=== PATIENT | female | born 1960 | race Caucasian/White ===

== ENCOUNTER → 2016-08-28 | Outpatient (CLI) | payer OTHER, MEDICAID, MEDICARE ==
[~2016-08-28] MED LIST: ALBUTEROL SULF 2.5 MG/0.5ML(0.5%) NEB SOLN ONE; ASPI-231 PO; CARI350T21 PO; CITA-77 PO; ENALAPRIL PO; FLUT250M2 INH; HYDR500T13 PO; LORA-655 PO; MONT10TA23 PO; MONT10TA34 PO; MULT-279 PO; PREG50CA PO; TIOTCAP IN; [UNRECOGNIZED DRUG - CODE] PO
== END | disposition home or self-care (01) ==
LOC: RT 08:35
PROVIDERS: ATTEND Internal Medicine Pulmonary Disease
DX: J44.9 Chronic obstructive pulmonary disease, unspecified (principal); R94.2 Abnormal results of pulmonary function studies
CPT/HCPCS: 94060; 94640

== ENCOUNTER 2016-08-30 11:27 | Inpatient (IN) | payer OTHER, MEDICAID ==
[~2016-08-30] VITALS: Ht 165.1 cm; Wt 126.6 kg
[~2016-08-30 11:27] MED LIST changes: -ALBUTEROL SULF 2.5 MG/0.5ML(0.5%) NEB SOLN ONE
[2016-08-30] MEDS ORDERED: ALBUTEROL SULF 2.5 MG/0.5ML(0.5%) NEB SOLN HHN ONE (12:15)
[2016-08-30] MEDS ORDERED: methylPREDNISolone SOD SUCC 125 MG/2 ML VL IV ONE (12:15)
[2016-08-30] MEDS ORDERED: IPRATROPIUM BROM 0.5 MG/2.5ML INH SOL HHN ONE (12:15)
[2016-08-30] MEDS ORDERED: ALBUTEROL SULF 2.5 MG/0.5ML(0.5%) NEB SOLN NEB ONE (12:30)
[2016-08-30 12:37] LABS: Basophils # (auto) 0 uL; Basophils % (auto) 0.5 % (0.0-2.0); Eosinophils # (auto) 0.3 uL; Eosinophils % (auto) 3.8 % (0.0-7.0); Hematocrit 40.8 % (36.0-46.0); Hemoglobin 13.5 g/dL (12.2-16.2); Lymphocytes # (auto) 1.6 uL; Lymphocytes % (auto) 20.7 % (10.0-50.0); Mean Corpuscular Hgb Conc. 33.1 g/dL (32.0-36.0); Mean Corpuscular Volume 93.4 fL (80.0-100.0); Mean Platelet Volume 9.7 fL (7.4-10.4); Monocytes # (auto) 0.6 uL; Monocytes % (auto) 7.4 % (0.0-12.0); Neutrophils # (auto) 5.2 uL; Neutrophils % (auto) 67.6 % (37.0-80.0); Platelet Count (auto) 231 10^3/uL (140-450); Red Cell Distribution Width 15.4 % (11.6-16.0); White Blood Cell 7.7 10^3/uL (4.4-10.8)
[2016-08-30 12:55] LABS: Urine Bilirubin Negative (Negative); Urine Blood Negative /uL (Negative); Urine Color Yellow (Yellow); Urine Glucose Normal (Normal); Urine Ketone Negative (Negative); Urine Nitrite Negative (Negative); Urine RBC 1 /hpf (0 - 4); Urine Squamous Epithelial Cell FEW /hpf (<5); Urine Urobilinogen Normal (Negative); Urine pH 6.5 (5.0-8.0)
[2016-08-30 12:58] LABS: Lactic Acid w/Reflex 2.2 mmol/L (0.4-2.0)
[2016-08-30 13:00] LABS: Albumin 3.4 g/dL (3.4-5.0); Alkaline Phosphatase 93 U/L (45-117); Anion Gap 9 (5-15); Aspartate Aminotransferase 14 U/L (15-37); BUN/Creatinine Ratio 11.7; Bilirubin, Total 0.2 mg/dL (0.2-1.0); Blood Urea Nitrogen 12 mg/dL (7-18); Calcium 8.8 mg/dL (8.5-10.1); Carbon Dioxide 33 mmol/L (21-32); Chloride 96 mmol/L (98-107); GFR African American 71 mL/min; GFR Non-African American 58 mL/min; Glucose 109 mg/dL (74-106); Magnesium 2.3 mg/dL (1.6-2.6); Potassium 3.7 mmol/L (3.5-5.1); Sodium 138 mmol/L (136-145); Total Protein 7.4 g/dL (6.4-8.2)
[2016-08-30 13:28] LABS: REFLEX LACTIC ACID YES OR NO YES
[2016-08-30 13:29] LABS: B-Type Natriuretic Peptide 21.13 pg/mL (0-100)
[2016-08-30] MEDS ORDERED: PROCHLORPERAZINE EDISYLATE 5 MG/ML 2ML VIAL IV PRN (13:30)
[2016-08-30] MEDS ORDERED: cefTRIAXone 1GM/50ML D5W 50 ML IV ONE (13:30)
[2016-08-30] MEDS ORDERED: LACTULOSE 20Gm/30ML SOLN PO PRN (13:30)
[2016-08-30] MEDS ORDERED: MORPHINE SULF INJ 2 MG/ML SYRINGE 1ML IV PRN (13:30)
[2016-08-30] MEDS ORDERED: LORazepam 0.5 MG TAB PO PRN (13:30)
[2016-08-30] MEDS ORDERED: ACETAMINOPHEN 500 MG TAB PO PRN (13:30)
[2016-08-30] MEDS ORDERED: NITROGLYCERIN 0.4 MG SL TAB SL PRN (13:30)
[2016-08-30] MEDS ORDERED: CALCIUM CARB 500 MG CHEW TAB PO PRN (13:30)
[2016-08-30 13:38] LABS: Temperature: 24.5 C (20.0-25.0)
[2016-08-30] MEDS ORDERED: ENALAPRIL MALEATE 10 MG TAB PO ONE ×2 (13:45→14:00)
[2016-08-30] MEDS ORDERED: CITALOPRAM HYDROBR 20 MG TAB PO ONE (14:00)
[2016-08-30] MEDS ORDERED: MONTELUKAST SODIUM 10 MG TAB PO ONE (14:00)
[2016-08-30] MEDS ORDERED: MULTIPLE VITAMINS W/ MINERALS TAB PO ONE (14:00)
[2016-08-30] MEDS ORDERED: ENOXAPARIN SOD 40 MG/0.4 ML SYRINGE SC ONE (14:00)
[2016-08-30] MEDS ORDERED: ASPirin-EC 81 mg tab PO ONE (14:00)
[2016-08-30] MEDS ORDERED: PANTOPRAZOLE 40 MG TAB PO ONE (14:00)
[2016-08-30] MEDS ORDERED: methylPREDNISolone SOD SUCC 40 MG/ML VL IV ONE (14:00)
[2016-08-30] MEDS: SODIUM CHLORIDE 0.9% 1,000 ML IV SCH (14:14)
[2016-08-30] MEDS: HYDROcodone-ACET 5/325MG TAB PO PRN ×2 (14:22→20:31)
[2016-08-30] MEDS: DOXYCYCLINE HYC 100MG/250ML 250 ML IV SCH (14:22)
[2016-08-30 15:31] VITALS: BP 132/86
[2016-08-30] MEDS: ALBUTEROL SULF 2.5 MG/0.5ML(0.5%) NEB SOLN NEB PRN (15:40)
[2016-08-30 17:00] VITALS: BP 132/86
[2016-08-30] MEDS ORDERED: ALBUTEROL SULF 2.5 MG/0.5ML(0.5%) NEB SOLN NEB SCH (18:00)
[2016-08-30] MEDS: methylPREDNISolone SOD SUCC 40 MG/ML VL IV SCH ×2 (18:41→23:47)
[2016-08-30] MEDS: BUDESONIDE (INHALATION) 0.5 MG/2 ML NEB NEB SCH (19:24)
[2016-08-30] MEDS: ALBUTEROL SULF 2.5 MG/0.5ML(0.5%) NEB SOLN NEB SCH (19:25)
[2016-08-30] MEDS: IPRATROPIUM BROM 0.5 MG/2.5ML INH SOL NEB SCH (19:25)
[2016-08-30 20:00] VITALS: BP 129/63
[2016-08-30] MEDS: TEMAZEPAM 15 MG CAP PO PRN (21:50)
[2016-08-30] MEDS: PREGABALIN 25 MG CAP PO SCH (21:51)
[2016-08-30 22:00] VITALS: BP_SYST 129; BP_SYST 149; BP_DIAS 63; BP_DIAS 79
[2016-08-30] MEDS ORDERED: PATIENTS OWN MEDICATION (Pregabalin (Lyrica) 50 MG) PO SCH ×2 (22:00)
[2016-08-30] MEDS ORDERED: PATIENTS OWN MEDICATION (Fluticasone-Salmeterol (Advair Diskus 250/50) 1 PUFF) INH SCH ×2 (22:00)
[2016-08-30] MEDS ORDERED: IPRATROPIUM BROM 0.5 MG/2.5ML INH SOL ONE (23:59)
[2016-08-31] VITALS (7 sets, daily range): BP systolic 123–149; BP diastolic 63–100
[2016-08-31] MEDS: ALBUTEROL SULF 2.5 MG/0.5ML(0.5%) NEB SOLN NEB SCH ×4 (00:09→18:52)
[2016-08-31] MEDS: IPRATROPIUM BROM 0.5 MG/2.5ML INH SOL NEB SCH ×4 (00:09→18:52)
[2016-08-31] MEDS: DOXYCYCLINE HYC 100MG/250ML 250 ML IV SCH ×2 (01:28→12:56)
[2016-08-31] MEDS: SODIUM CHLORIDE 0.9% 1,000 ML IV SCH ×2 (02:49→16:09)
[2016-08-31] MEDS: methylPREDNISolone SOD SUCC 40 MG/ML VL IV SCH ×4 (05:33→23:44)
[2016-08-31] MEDS: BUDESONIDE (INHALATION) 0.5 MG/2 ML NEB NEB SCH ×2 (06:48→22:26)
[2016-08-31] MEDS: MORPHINE SULF INJ 2 MG/ML SYRINGE 1ML IV PRN ×2 (07:47→12:56)
[2016-08-31] MEDS: ASPirin-EC 81 mg tab PO SCH (09:34)
[2016-08-31] MEDS: MULTIPLE VITAMINS W/ MINERALS TAB PO SCH (09:35)
[2016-08-31] MEDS: CITALOPRAM HYDROBR 20 MG TAB PO SCH (09:35)
[2016-08-31] MEDS: ENALAPRIL MALEATE 10 MG TAB PO SCH (09:35)
[2016-08-31] MEDS: ENOXAPARIN SOD 40 MG/0.4 ML SYRINGE SC SCH (09:36)
[2016-08-31] MEDS: MONTELUKAST SODIUM 10 MG TAB PO SCH (09:36)
[2016-08-31] MEDS: LORazepam 0.5 MG TAB PO SCH (09:36)
[2016-08-31] MEDS ORDERED: PATIENTS OWN MEDICATION (Tiotropium Bromide Monohydrate (Spiriva Handihaler) 1 PUFF) IN SCH (10:00)
[2016-08-31] MEDS ORDERED: ENALAPRIL 40 MG PO SCH (10:00)
[2016-08-31] MEDS ORDERED: PANTOPRAZOLE 40 MG TAB PO SCH (10:00)
[2016-08-31] MEDS ORDERED: BUDESONIDE (INHALATION) 0.5 MG/2 ML NEB NEB SCH (10:00)
[2016-08-31] MEDS: ALBUTEROL SULF 2.5 MG/0.5ML(0.5%) NEB SOLN NEB PRN (10:27)
[2016-08-31] MEDS ORDERED: IPRATROPIUM BROM 0.5 MG/2.5ML INH SOL ONE ×2 (12:31→17:51)
[2016-08-31] MEDS: HYDROcodone-ACET 5/325MG TAB PO PRN (19:52)
[2016-08-31] MEDS: TEMAZEPAM 15 MG CAP PO PRN (21:40)
[2016-08-31] MEDS: PREGABALIN 25 MG CAP PO SCH (21:40)
[2016-09-01] MEDS ORDERED: IPRATROPIUM BROM 0.5 MG/2.5ML INH SOL ONE ×3 (00:04→10:52)
[2016-09-01] MEDS: IPRATROPIUM BROM 0.5 MG/2.5ML INH SOL NEB SCH ×3 (00:28→11:01)
[2016-09-01] MEDS: ALBUTEROL SULF 2.5 MG/0.5ML(0.5%) NEB SOLN NEB SCH ×3 (00:28→11:01)
[2016-09-01] MEDS: DOXYCYCLINE HYC 100MG/250ML 250 ML IV SCH (01:06)
[2016-09-01] MEDS: SODIUM CHLORIDE 0.9% 1,000 ML IV SCH (05:29)
[2016-09-01 05:30] VITALS: BP 129/63
[2016-09-01] MEDS: methylPREDNISolone SOD SUCC 40 MG/ML VL IV SCH ×2 (05:54→12:23)
[2016-09-01] MEDS: HYDROcodone-ACET 5/325MG TAB PO PRN (06:21)
[2016-09-01 08:00] VITALS: BP 157/97
[2016-09-01 09:00] VITALS: BP 157/97
[2016-09-01] MEDS: BUDESONIDE (INHALATION) 0.5 MG/2 ML NEB NEB SCH (09:35)
[2016-09-01] MEDS: ENALAPRIL MALEATE 10 MG TAB PO SCH (09:49)
[2016-09-01] MEDS: ENOXAPARIN SOD 40 MG/0.4 ML SYRINGE SC SCH (09:50)
[2016-09-01] MEDS: MULTIPLE VITAMINS W/ MINERALS TAB PO SCH (09:50)
[2016-09-01] MEDS: ASPirin-EC 81 mg tab PO SCH (09:50)
[2016-09-01] MEDS: LORazepam 0.5 MG TAB PO SCH (09:50)
[2016-09-01] MEDS: CITALOPRAM HYDROBR 20 MG TAB PO SCH (09:50)
[2016-09-01] MEDS: MONTELUKAST SODIUM 10 MG TAB PO SCH (09:50)
[2016-09-01 11:31] VITALS: BP 157/97
[2016-09-01 13:00] VITALS: BP 167/93
[2016-09-01] MEDS: ALBUTEROL SULF 2.5 MG/0.5ML(0.5%) NEB SOLN NEB PRN (14:18)
== END 2016-09-01 14:45 | disposition home or self-care (01) | DRG 291 ==
LOC: ER 11:28 → TELE 11:29 → TELE-CENTR 15:12
PROVIDERS: ADMIT Internal Medicine; ATTEND Family Medicine
DX: I11.0 Hypertensive heart disease with heart failure (principal); J96.20 Acute and chronic respiratory failure, unspecified whether with hypoxia or hypercapnia; J44.1 Chronic obstructive pulmonary disease with (acute) exacerbation; Z68.42 Body mass index [BMI] 45.0-49.9, adult; I50.33 Acute on chronic diastolic (congestive) heart failure; I48.91 Unspecified atrial fibrillation; E66.01 Morbid (severe) obesity due to excess calories; F32.9 Major depressive disorder, single episode, unspecified; E78.5 Hyperlipidemia, unspecified; K44.9 Diaphragmatic hernia without obstruction or gangrene; F41.9 Anxiety disorder, unspecified; Z82.49 Family history of ischemic heart disease and other diseases of the circulatory system; Z87.891 Personal history of nicotine dependence; Z99.81 Dependence on supplemental oxygen; Z88.6 Allergy status to analgesic agent; Z79.899 Other long term (current) drug therapy; Z90.710 Acquired absence of both cervix and uterus; Z80.8 Family history of malignant neoplasm of other organs or systems; Z82.5 Family history of asthma and other chronic lower respiratory diseases; Z82.0 Family history of epilepsy and other diseases of the nervous system
CPT/HCPCS: 36415; 71010; 80053; 81001; 83605; 83735; 83880; 84484; 85025; 87040; 94640; 96365; 96375; J0696; J3490

== ENCOUNTER 2016-09-17 14:13 | Inpatient (IN) | payer OTHER, MEDICAID ==
[~2016-09-17] VITALS: Ht 165.1 cm; Wt 121.4 kg
[2016-09-17] MEDS ORDERED: ONDANSETRON HCL 4 MG/2 ML VIAL IV ONE (15:15)
[2016-09-17] MEDS ORDERED: MORPHINE SULF INJ 2 MG/ML SYRINGE 1ML IV ONE ×2 (15:15→16:30)
[2016-09-17 17:56] LABS: Basophils # (auto) 0.1 uL; Basophils % (auto) 0.5 % (0.0-2.0); Eosinophils # (auto) 0 uL; Hematocrit 39.1 % (36.0-46.0); Hemoglobin 13.1 g/dL (12.2-16.2); Lymphocytes # (auto) 1.5 uL; Mean Corpuscular Hemoglobin 31.4 pg (28.0-32.0); Mean Corpuscular Hgb Conc. 33.5 g/dL (32.0-36.0); Mean Corpuscular Volume 93.8 fL (80.0-100.0); Mean Platelet Volume 9.1 fL (7.4-10.4); Monocytes # (auto) 0.7 uL; Neutrophils # (auto) 11.1 uL; Neutrophils % (auto) 83.5 % (37.0-80.0); Platelet Count (auto) 274 10^3/uL (140-450); Red Cell Distribution Width 15.2 % (11.6-16.0); White Blood Cell 13.2 10^3/uL (4.4-10.8)
[2016-09-17 18:11] LABS: INR 0.95 (0.9-1.15); Partial Thromboplastin Time 25.9 sec (22.64-33.71); Prothrombin Time 10.4 sec (9.37-12.3)
[2016-09-17 18:17] LABS: Albumin 3.4 g/dL (3.4-5.0); BUN/Creatinine Ratio 22.5; Bilirubin, Total 0.3 mg/dL (0.2-1.0); Calcium 8.4 mg/dL (8.5-10.1); Magnesium 1.7 mg/dL (1.6-2.6); Potassium 4.2 mmol/L (3.5-5.1); Total Protein 6.9 g/dL (6.4-8.2)
[2016-09-17] MEDS ORDERED: ALBUTEROL SULF 2.5 MG/0.5ML(0.5%) NEB SOLN HHN ONE (20:45)
[2016-09-17] MEDS ORDERED: IPRATROPIUM BROM 0.5 MG/2.5ML INH SOL HHN ONE (20:45)
[2016-09-17] MEDS ORDERED: CARISOPRODOL 350 MG TAB PO PRN (22:45)
[2016-09-17] MEDS ORDERED: ACETAMINOPHEN 325 MG TAB PO PRN (22:45)
[2016-09-17] MEDS ORDERED: ONDANSETRON HCL 4 MG/2 ML VIAL IV PRN (22:45)
[2016-09-17] MEDS: MORPHINE SULF INJ 2 MG/ML SYRINGE 1ML IV PRN (23:33)
[2016-09-18] MEDS: TEMAZEPAM 15 MG CAP PO PRN ×2 (00:06→22:32)
[2016-09-18 01:02] VITALS: BP 107/87
[2016-09-18 02:37] VITALS: BP 132/98
[2016-09-18] MEDS: MORPHINE SULF INJ 2 MG/ML SYRINGE 1ML IV PRN ×5 (03:42→22:32)
[2016-09-18] MEDS: HYDROcodone-ACET 5/325MG TAB PO PRN ×4 (05:34→20:21)
[2016-09-18 06:08] LABS: Basophils # (auto) 0 uL; Basophils % (auto) 0.2 % (0.0-2.0); Eosinophils # (auto) 0 uL; Eosinophils % (auto) 0.1 % (0.0-7.0); Hematocrit 36.6 % (36.0-46.0); Hemoglobin 12.4 g/dL (12.2-16.2); Lymphocytes # (auto) 1.5 uL; Lymphocytes % (auto) 16.9 % (10.0-50.0); Mean Corpuscular Hemoglobin 31.6 pg (28.0-32.0); Mean Corpuscular Hgb Conc. 33.8 g/dL (32.0-36.0); Mean Corpuscular Volume 93.5 fL (80.0-100.0); Mean Platelet Volume 9.4 fL (7.4-10.4); Monocytes # (auto) 0.9 uL; Monocytes % (auto) 10.6 % (0.0-12.0); Neutrophils # (auto) 6.4 uL; Neutrophils % (auto) 72.2 % (37.0-80.0); Platelet Count (auto) 205 10^3/uL (140-450); Red Cell Distribution Width 15.3 % (11.6-16.0); White Blood Cell 8.8 10^3/uL (4.4-10.8)
[2016-09-18 06:25] LABS: Albumin 2.9 g/dL (3.4-5.0); BUN/Creatinine Ratio 18.9; Calcium 8.1 mg/dL (8.5-10.1)
[2016-09-18 06:28] LABS: Bilirubin, Total 0.6 mg/dL (0.2-1.0); Total Protein 6.4 g/dL (6.4-8.2)
[2016-09-18] MEDS: IPRATROPIUM BROM 0.5 MG/2.5ML INH SOL NEB PRN ×2 (07:10→18:22)
[2016-09-18] MEDS: ALBUTEROL SULF 2.5 MG/0.5ML(0.5%) NEB SOLN NEB PRN ×2 (07:10→18:22)
[2016-09-18 08:00] VITALS: BP 162/92
[2016-09-18 08:43] VITALS: BP 162/92
[2016-09-18] MEDS: MONTELUKAST SODIUM 10 MG TAB PO SCH (10:21)
[2016-09-18] MEDS: CITALOPRAM HYDROBR 20 MG TAB PO SCH (10:21)
[2016-09-18] MEDS: ASPirin 81 mg TAB PO SCH (10:21)
[2016-09-18] MEDS: FAMOTIDINE 20 MG TAB PO SCH ×2 (10:21→20:21)
[2016-09-18] MEDS: ENALAPRIL MALEATE 10 MG TAB PO SCH (10:22)
[2016-09-18] MEDS: ENOXAPARIN SOD 40 MG/0.4 ML SYRINGE SC SCH (10:22)
[2016-09-18] MEDS: BOOST PLUS 8 ounce PO SCH ×2 (12:16→18:46)
[2016-09-18 13:34] VITALS: BP 132/80
[2016-09-18 17:27] VITALS: BP 145/81
[2016-09-18] MEDS ORDERED: PREGABALIN 25 MG CAP PO SCH (22:00)
[2016-09-19 00:15] VITALS: BP 128/95
[2016-09-19] MEDS: MORPHINE SULF INJ 2 MG/ML SYRINGE 1ML IV PRN ×3 (03:04→15:48)
[2016-09-19 05:21] LABS: Urine Bilirubin Negative (Negative); Urine Color Yellow (Yellow); Urine Glucose Normal (Normal); Urine Hyaline Cast FEW /lpf (0 - 2); Urine Ketone Negative (Negative); Urine Mucus FEW (None Seen); Urine Nitrite Negative (Negative); Urine RBC 60 /hpf (0 - 4); Urine Squamous Epithelial Cell FEW /hpf (<5); Urine Urobilinogen Normal (Negative)
[2016-09-19 05:22] LABS: Urine Blood 3+ /uL (Negative)
[2016-09-19 05:41] VITALS: BP 142/95
[2016-09-19 07:00] LABS: Basophils # (auto) 0 uL; Basophils % (auto) 0.2 % (0.0-2.0); Eosinophils # (auto) 0.1 uL; Eosinophils % (auto) 0.8 % (0.0-7.0); Hematocrit 35.8 % (36.0-46.0); Hemoglobin 11.9 g/dL (12.2-16.2); Lymphocytes # (auto) 1.5 uL; Lymphocytes % (auto) 16.1 % (10.0-50.0); Mean Corpuscular Hemoglobin 31.8 pg (28.0-32.0); Mean Corpuscular Hgb Conc. 33.3 g/dL (32.0-36.0); Mean Corpuscular Volume 95.4 fL (80.0-100.0); Mean Platelet Volume 9.9 fL (7.4-10.4); Monocytes # (auto) 0.8 uL; Monocytes % (auto) 8.3 % (0.0-12.0); Neutrophils # (auto) 6.8 uL; Neutrophils % (auto) 74.6 % (37.0-80.0); Platelet Count (auto) 198 10^3/uL (140-450); Red Cell Distribution Width 15.1 % (11.6-16.0); White Blood Cell 9.1 10^3/uL (4.4-10.8)
[2016-09-19 07:18] LABS: Potassium 4.1 mmol/L (3.5-5.1)
[2016-09-19 07:24] LABS: Albumin 2.7 g/dL (3.4-5.0); BUN/Creatinine Ratio 17.9; Calcium 8.5 mg/dL (8.5-10.1)
[2016-09-19 07:31] LABS: Bilirubin, Total 0.5 mg/dL (0.2-1.0); Total Protein 6.4 g/dL (6.4-8.2)
[2016-09-19] MEDS: BOOST PLUS 8 ounce PO SCH ×2 (08:08→12:00)
[2016-09-19] MEDS: MONTELUKAST SODIUM 10 MG TAB PO SCH (08:40)
[2016-09-19] MEDS: ASPirin 81 mg TAB PO SCH (08:40)
[2016-09-19] MEDS: FAMOTIDINE 20 MG TAB PO SCH (08:40)
[2016-09-19] MEDS: CITALOPRAM HYDROBR 20 MG TAB PO SCH (08:40)
[2016-09-19] MEDS: ENOXAPARIN SOD 40 MG/0.4 ML SYRINGE SC SCH (08:40)
[2016-09-19] MEDS: ENALAPRIL MALEATE 10 MG TAB PO SCH (08:41)
[2016-09-19] MEDS: HYDROcodone-ACET 5/325MG TAB PO PRN (08:43)
[2016-09-19] MEDS: IPRATROPIUM BROM 0.5 MG/2.5ML INH SOL NEB PRN ×2 (09:11→16:07)
[2016-09-19] MEDS: ALBUTEROL SULF 2.5 MG/0.5ML(0.5%) NEB SOLN NEB PRN ×2 (09:11→16:08)
[2016-09-19 09:19] VITALS: BP 134/82
[2016-09-19 13:00] VITALS: BP 110/60
[2016-09-19] MEDS ORDERED: MUPIROCIN 2% OINT 22GM TOP ONE (16:00)
[2016-09-19] MEDS ORDERED: MUPIROCIN 2% OINT 22GM EACHNOSTRI SCH (22:00)
== END 2016-09-19 17:55 | disposition home or self-care (01) | DRG 562 ==
LOC: EDBD 14:13 → ER 14:24 → OVERFLOW 14:25 → CENTRAL 23:09
PROVIDERS: ADMIT Internal Medicine; ATTEND Internal Medicine
DX: S42.221A 2-part displaced fracture of surgical neck of right humerus, initial encounter for closed fracture (principal); E43 Unspecified severe protein-calorie malnutrition; E87.1 Hypo-osmolality and hyponatremia; E44.0 Moderate protein-calorie malnutrition; D68.69 Other thrombophilia; I48.92 Unspecified atrial flutter; Z68.41 Body mass index [BMI] 40.0-44.9, adult; W01.0XXA Fall on same level from slipping, tripping and stumbling without subsequent striking against object, initial encounter; J44.9 Chronic obstructive pulmonary disease, unspecified; F41.9 Anxiety disorder, unspecified; F32.9 Major depressive disorder, single episode, unspecified; R09.02 Hypoxemia; G89.4 Chronic pain syndrome; F12.90 Cannabis use, unspecified, uncomplicated; E78.5 Hyperlipidemia, unspecified; N18.2 Chronic kidney disease, stage 2 (mild); I48.91 Unspecified atrial fibrillation; I12.9 Hypertensive chronic kidney disease with stage 1 through stage 4 chronic kidney disease, or unspecified chronic kidney disease; E66.01 Morbid (severe) obesity due to excess calories; Z87.891 Personal history of nicotine dependence; Z90.710 Acquired absence of both cervix and uterus; Z82.49 Family history of ischemic heart disease and other diseases of the circulatory system; Z82.5 Family history of asthma and other chronic lower respiratory diseases; Z81.8 Family history of other mental and behavioral disorders; Z88.8 Allergy status to other drugs, medicaments and biological substances
CPT/HCPCS: 36415; 51702; 71010; 73030; 73080; 80053; 81001; 83735; 85025; 85610; 85730; 87081; 87086; 93005; 94640; 96374; 96375; 96376; J2405

== ENCOUNTER → 2017-05-14 | Outpatient (CLI) | payer OTHER, MEDICAID ==
[~2017-05-14] MED LIST changes: +CALC1CHW PO; +CARI-316 PO; -CARI350T21 PO; -[UNRECOGNIZED DRUG - CODE] PO
[2017-05-14 11:43] LABS: Basophils # (auto) 0 uL; Basophils % (auto) 0.6 % (0.0-2.0); Eosinophils # (auto) 0.2 uL; Eosinophils % (auto) 2.4 % (0.0-7.0); Hematocrit 39.8 % (36.0-46.0); Hemoglobin 13.2 g/dL (12.2-16.2); Lymphocytes # (auto) 1.1 uL; Lymphocytes % (auto) 15.5 % (10.0-50.0); Mean Corpuscular Hemoglobin 31.7 pg (28.0-32.0); Monocytes # (auto) 0.4 uL; Neutrophils # (auto) 5.6 uL; Neutrophils % (auto) 76.5 % (37.0-80.0); Platelet Count (auto) 207 10^3/uL (140-450); Red Blood Cells 4.15 10^6/uL (4.0-5.20); Red Cell Distribution Width 15.9 % (11.8-14.3); White Blood Cell 7.3 10^3/uL (4.4-10.8)
[2017-05-14 12:17] LABS: Albumin 3.5 g/dL (3.4-5.0); BUN/Creatinine Ratio 11.8; Bilirubin, Total 0.4 mg/dL (0.2-1.0); Calcium 8.9 mg/dL (8.5-10.1); Potassium 4.6 mmol/L (3.5-5.1); Total Protein 7.5 g/dL (6.4-8.2)
[2017-05-14 12:22] LABS: Urine Specific Gravity 1.009 (1.001-1.035)
[2017-05-14 12:23] LABS: Urine Bacteria FEW /hpf (None Seen); Urine Blood 1+ /uL (Negative)
[2017-05-14 12:24] LABS: Urine Mucus FEW (None Seen)
[2017-05-14 13:00] LABS: Hepatitis B Surface Antibody Negative
[2017-05-14 13:09] LABS: Hepatitis B Surface Antigen Negative (Negative)
[2017-05-14 13:38] LABS: Hepatitis A Total Antibody Positive; Hepatitis C Antibody Negative (Negative)
[2017-05-14 13:39] LABS: Hepatitis B Core Total AB Negative
== END | disposition home or self-care (01) ==
LOC: LAB 11:15
PROVIDERS: ATTEND Family Medicine
DX: Z20.5 Contact with and (suspected) exposure to viral hepatitis (principal); I10 Essential (primary) hypertension; J44.9 Chronic obstructive pulmonary disease, unspecified; F33.9 Major depressive disorder, recurrent, unspecified; I48.91 Unspecified atrial fibrillation; Z76.0 Encounter for issue of repeat prescription; M85.859 Other specified disorders of bone density and structure, unspecified thigh
CPT/HCPCS: 36415; 80053; 80061; 81001; 82306; 83036; 84443; 85025; 86704; 86706; 86708; 86803; 87340

== ENCOUNTER → 2017-07-16 | Outpatient (CLI) | payer OTHER, MEDICAID ==
[2017-07-16 10:47] LABS: Albumin 3.2 g/dL (3.4-5.0); BUN/Creatinine Ratio 15.1; Bilirubin, Total 0.2 mg/dL (0.2-1.0); Calcium 8.4 mg/dL (8.5-10.1); Potassium 4.4 mmol/L (3.5-5.1)
== END | disposition home or self-care (01) ==
LOC: LAB 09:03
PROVIDERS: ATTEND Family Medicine
DX: E78.5 Hyperlipidemia, unspecified (principal)
CPT/HCPCS: 36415; 80053; 80061

== ENCOUNTER 2017-09-02 16:45 | Observation (INO) | payer OTHER, MEDICAID ==
[~2017-09-02] VITALS: Ht 165.1 cm; Wt 127.0 kg
[2017-09-02 18:26] LABS: Alanine Aminotransferase 16 U/L (13-56); Albumin 3.4 g/dL (3.4-5.0); Alkaline Phosphatase 75 U/L (45-117); Anion Gap 5 (5-15); Aspartate Aminotransferase 13 U/L (15-37); BUN/Creatinine Ratio 13.6; Bilirubin, Total < 0.1 mg/dL (0.2-1.0); Blood Urea Nitrogen 11 mg/dL (7-18); Calcium 8.6 mg/dL (8.5-10.1); Carbon Dioxide 33 mmol/L (21-32); Chloride 100 mmol/L (98-107); GFR African American 93 mL/min; GFR Non-African American 77 mL/min; Glucose 113 mg/dL (74-106); Magnesium 2.3 mg/dL (1.6-2.6); Potassium 4.4 mmol/L (3.5-5.1); Sodium 138 mmol/L (136-145)
[2017-09-02 18:37] LABS: INR 0.86 (0.9-1.15); Partial Thromboplastin Time 20.2 sec (22.64-33.71); Prothrombin Time 9.4 sec (9.37-12.3)
[2017-09-02] MEDS ORDERED: IPRATROPIUM BROM 0.5 MG/2.5ML INH SOL HHN ONE (19:00)
[2017-09-02] MEDS ORDERED: methylPREDNISolone SOD SUCC 125 MG/2 ML VL IV ONE (19:00)
[2017-09-02] MEDS ORDERED: ALBUTEROL SULF 2.5 MG/0.5ML(0.5%) NEB SOLN HHN ONE (19:00)
[2017-09-02 20:00] LABS: Basophils % (auto) 0.6 % (0.0-2.0); Eosinophils % (auto) 2.5 % (0.0-7.0); Lymphocytes % (auto) 18.2 % (10.0-50.0); Monocytes % (auto) 7.7 % (0.0-12.0)
[2017-09-02 20:01] LABS: Basophils # (auto) 0 uL; Eosinophils # (auto) 0.2 uL; Hematocrit 34.7 % (36.0-46.0); Hemoglobin 11.4 g/dL (12.2-16.2); Lymphocytes # (auto) 1.5 uL; Mean Corpuscular Hemoglobin 31.2 pg (28.0-32.0); Mean Corpuscular Hgb Conc. 32.8 g/dL (32.0-36.0); Mean Corpuscular Volume 95.3 fL (80.0-100.0); Monocytes # (auto) 0.6 uL; Neutrophils # (auto) 5.7 uL; Red Blood Cells 3.64 10^6/uL (4.0-5.20)
[2017-09-02 20:02] LABS: Platelet Count (auto) 190 10^3/uL (140-450); Red Cell Distribution Width 15.4 % (11.8-14.3)
[2017-09-02] MEDS ORDERED: cefTRIAXone SOD 1,000 MG VL IM ONE (20:15)
[2017-09-02] MEDS ORDERED: methylPREDNISolone SOD SUCC 125 MG/2 ML VL IM ONE (20:15)
[2017-09-02] MEDS ORDERED: LIDOCAINE 2% (LOCAL ANESTH.) PF 5ml SDV ONE (21:08)
[2017-09-02 21:44] VITALS: BP 128/58
== END 2017-09-02 22:34 | disposition home or self-care (01) | DRG 192 ==
LOC: ER 16:53 → OVERFLOW 17:42 → ER 22:34
PROVIDERS: ADMIT Family Medicine; ATTEND Family Medicine
DX: J44.9 Chronic obstructive pulmonary disease, unspecified (principal); I48.91 Unspecified atrial fibrillation; D64.9 Anemia, unspecified; I10 Essential (primary) hypertension; E78.5 Hyperlipidemia, unspecified; F41.9 Anxiety disorder, unspecified; Z90.710 Acquired absence of both cervix and uterus; Z87.891 Personal history of nicotine dependence; F32.9 Major depressive disorder, single episode, unspecified
CPT/HCPCS: 36415; 71045; 80053; 83735; 83880; 84443; 84484; 85025; 85610; 85730; 93005; 94640; 96372; 99285; G0378; J0696; J2930; J7030

== ENCOUNTER 2017-09-05 13:12 | Inpatient (IN) | payer OTHER, MEDICAID ==
[~2017-09-05] VITALS: Ht 165.1 cm; Wt 131.0 kg
[2017-09-05 14:10] LABS: Basophils # (auto) 0 uL; Basophils % (auto) 0.3 % (0.0-2.0); Eosinophils # (auto) 0 uL; Hematocrit 38.6 % (36.0-46.0); Hemoglobin 12.5 g/dL (12.2-16.2); Lymphocytes # (auto) 0.7 uL; Lymphocytes % (auto) 7.9 % (10.0-50.0); Mean Corpuscular Hemoglobin 30.6 pg (28.0-32.0); Mean Corpuscular Hgb Conc. 32.5 g/dL (32.0-36.0); Mean Corpuscular Volume 94.1 fL (80.0-100.0); Monocytes # (auto) 0.2 uL; Monocytes % (auto) 2.3 % (0.0-12.0); Neutrophils # (auto) 7.5 uL; Neutrophils % (auto) 89.5 % (37.0-80.0); Platelet Count (auto) 209 10^3/uL (140-450); Red Cell Distribution Width 15.4 % (11.8-14.3); White Blood Cell 8.4 10^3/uL (4.4-10.8)
[2017-09-05 14:21] LABS: INR 0.9 (0.9-1.15); Partial Thromboplastin Time 23.1 sec (22.64-33.71); Prothrombin Time 9.8 sec (9.37-12.3)
[2017-09-05 14:28] LABS: Magnesium 2.1 mg/dL (1.6-2.6)
[2017-09-05] MEDS ORDERED: LORazepam 0.5 MG TAB PO ONE (14:30)
[2017-09-05 14:54] LABS: Albumin 3.7 g/dL (3.4-5.0); Bilirubin, Total 0.1 mg/dL (0.2-1.0); Calcium 9.9 mg/dL (8.5-10.1); Potassium 4.1 mmol/L (3.5-5.1); Total Protein 7.7 g/dL (6.4-8.2)
[2017-09-05] MEDS ORDERED: HYDROcodone-ACET 10/325MG TAB PO ONE (18:45)
[2017-09-05 18:57] VITALS: BP 159/78
[2017-09-05] MEDS ORDERED: MORPHINE SULFATE 4 MG/ML SYR/VIAL IV PRN ×2 (19:00)
[2017-09-05] MEDS ORDERED: DOXYCYCLINE 100MG/250ML 250 ML IV SCH (19:00)
[2017-09-05] MEDS ORDERED: ACETAMINOPHEN 500 MG TAB PO PRN (19:00)
[2017-09-05] MEDS ORDERED: CALCIUM CARB 500 MG CHEW TAB PO PRN (19:00)
[2017-09-05] MEDS ORDERED: LACTULOSE 20Gm/30ML SOLN PO PRN (19:00)
[2017-09-05] MEDS ORDERED: NITROGLYCERIN 0.4 MG SL TAB SL PRN (19:00)
[2017-09-05] MEDS ORDERED: ALBUTEROL SULF 2.5 MG/0.5ML(0.5%) NEB SOLN NEB PRN (19:00)
[2017-09-05] MEDS ORDERED: PROMETHAZINE HCL 25 MG/ML 1ML IV PRN (19:00)
[2017-09-05] MEDS ORDERED: methylPREDNISolone SOD SUCC 125 MG/2 ML VL IV ONE (20:00)
[2017-09-05] MEDS: SODIUM CHLORIDE 0.9% 1,000 ML IV SCH (21:14)
[2017-09-05] MEDS ORDERED: PATIENTS OWN MEDICATION (Fluticasone-Salmeterol (Advair Diskus 250/50) 1 PUFF) INH SCH (22:00)
[2017-09-05] MEDS: DOXYCYCLINE 100MG/250ML 250 ML IV SCH (22:11)
[2017-09-05] MEDS: ENALAPRIL MALEATE 10 MG TAB PO SCH (22:16)
[2017-09-05] MEDS: CARISOPRODOL 350 MG TAB PO SCH (22:17)
[2017-09-05 22:45] VITALS: BP 117/59
[2017-09-05] MEDS: PATIENTS OWN MEDICATION (Pregabalin (Lyrica) 50 MG) PO SCH (22:55)
[2017-09-05 23:51] VITALS: BP 160/82
[2017-09-06] MEDS: IPRATROPIUM BROM 0.5 MG/2.5ML INH SOL NEB SCH ×4 (00:12→18:48)
[2017-09-06] MEDS: ALBUTEROL SULF 2.5 MG/0.5ML(0.5%) NEB SOLN NEB SCH ×4 (00:12→18:48)
[2017-09-06] MEDS: BUDESONIDE (INHALATION) 0.5 MG/2 ML NEB NEB SCH ×3 (00:13→18:48)
[2017-09-06] MEDS: methylPREDNISolone SOD SUCC 40 MG/ML VL IV SCH ×4 (00:14→17:50)
[2017-09-06] MEDS: HYDROcodone-ACET 5/325MG TAB PO PRN ×3 (04:45→20:25)
[2017-09-06 05:00] VITALS: BP 162/85
[2017-09-06] MEDS: SODIUM CHLORIDE 0.9% 1,000 ML IV SCH ×2 (08:07→23:35)
[2017-09-06] MEDS: DOXYCYCLINE 100MG/250ML 250 ML IV SCH (08:44)
[2017-09-06 09:00] VITALS: BP 156/88
[2017-09-06] MEDS: CITALOPRAM HYDROBR 20 MG TAB PO SCH (10:28)
[2017-09-06] MEDS: MONTELUKAST SODIUM 10 MG TAB PO SCH (10:28)
[2017-09-06] MEDS: ASPirin-EC 81 mg tab PO SCH (10:29)
[2017-09-06] MEDS: CARISOPRODOL 350 MG TAB PO SCH ×2 (10:29→21:38)
[2017-09-06] MEDS: MULTIPLE VITAMINS W/ MINERALS TAB PO SCH (10:29)
[2017-09-06] MEDS: ENOXAPARIN SOD 40 MG/0.4 ML SYRINGE SC SCH (10:32)
[2017-09-06] MEDS: ENALAPRIL MALEATE 10 MG TAB PO SCH ×2 (10:32→21:39)
[2017-09-06] MEDS: LORazepam 0.5 MG TAB PO PRN ×2 (13:54→20:25)
[2017-09-06 17:00] VITALS: BP 142/98
[2017-09-06] MEDS: PATIENTS OWN MEDICATION (Pregabalin (Lyrica) 50 MG) PO SCH (21:38)
[2017-09-06 21:43] VITALS: BP 133/71
[2017-09-06] MEDS: TEMAZEPAM 15 MG CAP PO PRN (23:36)
[2017-09-07] MEDS: ALBUTEROL SULF 2.5 MG/0.5ML(0.5%) NEB SOLN NEB SCH ×5 (00:42→18:18)
[2017-09-07] MEDS: IPRATROPIUM BROM 0.5 MG/2.5ML INH SOL NEB SCH ×5 (00:42→18:18)
[2017-09-07] MEDS: LORazepam 0.5 MG TAB PO PRN ×3 (04:51→21:06)
[2017-09-07] MEDS: HYDROcodone-ACET 5/325MG TAB PO PRN ×3 (04:52→21:07)
[2017-09-07 05:16] VITALS: BP 137/83
[2017-09-07 06:22] LABS: Basophils # (auto) 0 uL; Basophils % (auto) 0.1 % (0.0-2.0); Eosinophils # (auto) 0 uL; Hematocrit 37.3 % (36.0-46.0); Hemoglobin 12.3 g/dL (12.2-16.2); Lymphocytes # (auto) 1.2 uL; Lymphocytes % (auto) 12.4 % (10.0-50.0); Mean Corpuscular Hemoglobin 31.1 pg (28.0-32.0); Mean Corpuscular Hgb Conc. 32.8 g/dL (32.0-36.0); Mean Corpuscular Volume 94.6 fL (80.0-100.0); Monocytes # (auto) 0.6 uL; Monocytes % (auto) 6.1 % (0.0-12.0); Neutrophils # (auto) 7.9 uL; Neutrophils % (auto) 81.4 % (37.0-80.0); Platelet Count (auto) 204 10^3/uL (140-450); Red Blood Cells 3.94 10^6/uL (4.0-5.20); Red Cell Distribution Width 15.5 % (11.8-14.3); White Blood Cell 9.8 10^3/uL (4.4-10.8)
[2017-09-07 06:35] LABS: Albumin 3.4 g/dL (3.4-5.0); BUN/Creatinine Ratio 26.8; Bilirubin, Total 0.2 mg/dL (0.2-1.0); Calcium 8.7 mg/dL (8.5-10.1); Total Protein 7.1 g/dL (6.4-8.2)
[2017-09-07] MEDS: BUDESONIDE (INHALATION) 0.5 MG/2 ML NEB NEB SCH ×2 (07:29→18:19)
[2017-09-07 09:02] VITALS: BP 148/96
[2017-09-07] MEDS: ASPirin-EC 81 mg tab PO SCH (09:49)
[2017-09-07] MEDS: CITALOPRAM HYDROBR 20 MG TAB PO SCH (09:49)
[2017-09-07] MEDS: MONTELUKAST SODIUM 10 MG TAB PO SCH (09:49)
[2017-09-07] MEDS: CARISOPRODOL 350 MG TAB PO SCH ×2 (09:50→22:36)
[2017-09-07] MEDS: MULTIPLE VITAMINS W/ MINERALS TAB PO SCH (09:50)
[2017-09-07] MEDS: ENALAPRIL MALEATE 10 MG TAB PO SCH ×2 (09:50→22:37)
[2017-09-07] MEDS: ENOXAPARIN SOD 40 MG/0.4 ML SYRINGE SC SCH (09:51)
[2017-09-07] MEDS: SODIUM CHLORIDE 0.9% 1,000 ML IV SCH (10:47)
[2017-09-07 13:00] VITALS: BP 146/94
[2017-09-07 17:00] VITALS: BP 157/93
[2017-09-07] MEDS: methylPREDNISolone SOD SUCC 125 MG/2 ML VL IV SCH (18:32)
[2017-09-07 22:00] VITALS: BP 130/87
[2017-09-07] MEDS ORDERED: BUDESONIDE (INHALATION) 0.5 MG/2 ML NEB NEB SCH (22:00)
[2017-09-07] MEDS ORDERED: PREGABALIN 50 MG PO SCH (22:00)
[2017-09-08] MEDS: SODIUM CHLORIDE 0.9% 1,000 ML IV SCH ×2 (00:07→13:27)
[2017-09-08] MEDS: TEMAZEPAM 15 MG CAP PO PRN (00:30)
[2017-09-08] MEDS: methylPREDNISolone SOD SUCC 125 MG/2 ML VL IV SCH ×3 (00:30→12:00)
[2017-09-08 05:35] VITALS: BP 152/97
[2017-09-08] MEDS: LORazepam 0.5 MG TAB PO PRN (06:08)
[2017-09-08] MEDS: HYDROcodone-ACET 5/325MG TAB PO PRN ×2 (06:08→13:27)
[2017-09-08] MEDS: ALBUTEROL SULF 2.5 MG/0.5ML(0.5%) NEB SOLN NEB SCH ×3 (06:25→14:14)
[2017-09-08] MEDS: IPRATROPIUM BROM 0.5 MG/2.5ML INH SOL NEB SCH ×3 (06:25→14:14)
[2017-09-08 08:26] VITALS: BP 158/92
[2017-09-08] MEDS: LEVOFLOXACIN 750MG 150 ML IV SCH ×2 (09:57→10:00)
[2017-09-08] MEDS: MULTIPLE VITAMINS W/ MINERALS TAB PO SCH (09:58)
[2017-09-08] MEDS: CITALOPRAM HYDROBR 20 MG TAB PO SCH (09:58)
[2017-09-08] MEDS: MONTELUKAST SODIUM 10 MG TAB PO SCH (09:58)
[2017-09-08] MEDS: CARISOPRODOL 350 MG TAB PO SCH (09:58)
[2017-09-08] MEDS: ENALAPRIL MALEATE 10 MG TAB PO SCH (09:59)
[2017-09-08] MEDS: ENOXAPARIN SOD 40 MG/0.4 ML SYRINGE SC SCH (09:59)
[2017-09-08] MEDS: ASPirin-EC 81 mg tab PO SCH (09:59)
[2017-09-08] MEDS: BUDESONIDE (INHALATION) 0.5 MG/2 ML NEB NEB SCH (10:17)
[2017-09-08] MEDS ORDERED: LEVOFLOXACIN 250 MG TAB PO ONE (12:15)
[2017-09-08 12:21] VITALS: BP 140/91
[2017-09-08 12:38] VITALS: BP 140/81
== END 2017-09-08 14:45 | disposition home or self-care (01) | DRG 191 ==
LOC: ER 13:12 → TELE 13:13 → CENTRAL 21:25
PROVIDERS: ADMIT Internal Medicine; ATTEND Internal Medicine Pulmonary Disease
DX: J44.1 Chronic obstructive pulmonary disease with (acute) exacerbation (principal); J96.10 Chronic respiratory failure, unspecified whether with hypoxia or hypercapnia; I11.0 Hypertensive heart disease with heart failure; E66.01 Morbid (severe) obesity due to excess calories; E78.00 Pure hypercholesterolemia, unspecified; E78.5 Hyperlipidemia, unspecified; F41.0 Panic disorder [episodic paroxysmal anxiety]; F41.1 Generalized anxiety disorder; F12.90 Cannabis use, unspecified, uncomplicated; F32.9 Major depressive disorder, single episode, unspecified; R73.9 Hyperglycemia, unspecified; I48.91 Unspecified atrial fibrillation; Z82.49 Family history of ischemic heart disease and other diseases of the circulatory system; Z90.710 Acquired absence of both cervix and uterus; Z99.81 Dependence on supplemental oxygen; Z87.891 Personal history of nicotine dependence; Z82.5 Family history of asthma and other chronic lower respiratory diseases; Z81.8 Family history of other mental and behavioral disorders; Z80.9 Family history of malignant neoplasm, unspecified; Z88.6 Allergy status to analgesic agent; Z79.899 Other long term (current) drug therapy
CPT/HCPCS: 36415; 71045; 80053; 83735; 83880; 84484; 85025; 85610; 85730; 87081; 87493; 93005; 94640; 96365; 96375; J1956; J3490

== ENCOUNTER 2018-03-16 22:53 | Inpatient (IN) | payer OTHER, MEDICAID ==
[~2018-03-16] VITALS: Ht 167.6 cm; Wt 138.6 kg
[~2018-03-16 22:53] MED LIST changes: -CARI-316 PO; +CARI350T22 PO; -MONT10TA34 PO
[2018-03-16] MEDS ORDERED: ALBUTEROL SULF 2.5 MG/0.5ML(0.5%) NEB SOLN ONE (23:31)
[2018-03-16] MEDS ORDERED: IPRATROPIUM BROM 0.5 MG/2.5ML INH SOL ONE (23:31)
[2018-03-16] MEDS ORDERED: ALBUTEROL SULF 2.5 MG/0.5ML(0.5%) NEB SOLN NEB ONE (23:45)
[2018-03-16] MEDS ORDERED: IPRATROPIUM BROM 0.5 MG/2.5ML INH SOL NEB ONE (23:45)
[2018-03-17] MEDS ORDERED: FUROSEMIDE 20 MG/2 ML VIAL IV ONE (00:30)
[2018-03-17 00:59] LABS: Basophils # (auto) 0 uL; Basophils % (auto) 0.5 % (0.0-2.0); Eosinophils # (auto) 0 uL; Eosinophils % (auto) 0.2 % (0.0-7.0); Hematocrit 42.8 % (36.0-46.0); Hemoglobin 13.9 g/dL (12.2-16.2); Lymphocytes % (auto) 23.2 % (10.0-50.0); Mean Corpuscular Hemoglobin 30.3 pg (28.0-32.0); Mean Corpuscular Hgb Conc. 32.5 g/dL (32.0-36.0); Mean Corpuscular Volume 93.2 fL (80.0-100.0); Monocytes # (auto) 0.5 uL; Monocytes % (auto) 10.5 % (0.0-12.0); Neutrophils % (auto) 65.6 % (37.0-80.0); Nucleated Red Blood Cells % 0.1 %; Platelet Count (auto) 192 10^3/uL (140-450); Red Blood Cells 4.59 10^6/uL (4.0-5.20); Red Cell Distribution Width 14.9 % (11.8-14.3); White Blood Cell 4.5 10^3/uL (4.4-10.8)
[2018-03-17 01:11] LABS: INR 0.94 (0.9-1.15); Partial Thromboplastin Time 30.1 sec (23.78-33.04); Prothrombin Time 10.1 sec (9.27-12.13)
[2018-03-17 01:16] LABS: Anion Gap 6 (5-15); Blood Urea Nitrogen 9 mg/dL (7-18); Calcium 9.2 mg/dL (8.5-10.1); Carbon Dioxide 33 mmol/L (21-32); Chloride 98 mmol/L (98-107); Potassium 4.2 mmol/L (3.5-5.1); Sodium 137 mmol/L (136-145)
[2018-03-17 01:19] LABS: Albumin 3.4 g/dL (3.4-5.0); BUN/Creatinine Ratio 12.5; GFR African American 107 mL/min; GFR Non-African American 88 mL/min; Glucose 101 mg/dL (74-106)
[2018-03-17 01:24] LABS: Alanine Aminotransferase 20 U/L (13-56); Alkaline Phosphatase 89 U/L (45-117); Aspartate Aminotransferase 17 U/L (15-37); Bilirubin, Total 0.5 mg/dL (0.2-1.0); Total Protein 7.3 g/dL (6.4-8.2)
[2018-03-17] MEDS ORDERED: MORPHINE SULFATE 4 MG/ML SYR/VIAL IV PRN (03:00)
[2018-03-17] MEDS ORDERED: ONDANSETRON HCL 4 MG/2 ML VIAL IV PRN (03:00)
[2018-03-17] MEDS ORDERED: ACETAMINOPHEN 325 MG TAB PO PRN (03:00)
[2018-03-17] MEDS ORDERED: NITROGLYCERIN 0.4 MG SL TAB SL PRN (03:00)
[2018-03-17] MEDS ORDERED: TEMAZEPAM 15 MG CAP PO PRN (03:00)
[2018-03-17] MEDS ORDERED: cloNIDine HCL 0.1 MG TAB PO PRN (03:00)
[2018-03-17] MEDS ORDERED: methylPREDNISolone SOD SUCC 125 MG/2 ML VL IV ONE (03:30)
[2018-03-17] MEDS: IPRATROPIUM BROM 0.5 MG/2.5ML INH SOL NEB PRN ×4 (04:56→19:13)
[2018-03-17] MEDS: ALBUTEROL SULF 2.5 MG/0.5ML(0.5%) NEB SOLN NEB PRN ×4 (04:56→19:13)
[2018-03-17] MEDS: LEVOFLOXACIN 500MG 100 ML IV SCH (05:18)
[2018-03-17 05:27] VITALS: BP 133/93
[2018-03-17] MEDS: HYDROcodone-ACET 5/325MG TAB PO PRN ×4 (05:51→21:21)
[2018-03-17 08:59] VITALS: BP 137/88
[2018-03-17] MEDS: ENALAPRIL MALEATE 10 MG TAB PO SCH (10:00)
[2018-03-17] MEDS: methylPREDNISolone SOD SUCC 125 MG/2 ML VL IV SCH ×2 (10:32→21:51)
[2018-03-17] MEDS: ENOXAPARIN SOD 40 MG/0.4 ML SYRINGE SC SCH (10:33)
[2018-03-17] MEDS: FUROSEMIDE 40 MG TAB PO SCH (10:33)
[2018-03-17] MEDS: FAMOTIDINE 20 MG TAB PO SCH ×2 (10:34→21:52)
[2018-03-17 12:04] VITALS: BP 118/73
[2018-03-17 13:23] VITALS: BP 118/73
[2018-03-17 17:03] VITALS: BP 134/76
[2018-03-17] MEDS: ATORVASTATIN 20 MG TAB PO SCH (21:51)
[2018-03-17] MEDS: MONTELUKAST SODIUM 10 MG TAB PO SCH (21:52)
[2018-03-17] MEDS: TEMAZEPAM 15 MG CAP PO PRN (21:53)
[2018-03-17 21:55] VITALS: BP 129/69
[2018-03-18] MEDS: IPRATROPIUM BROM 0.5 MG/2.5ML INH SOL NEB PRN ×7 (03:07→22:20)
[2018-03-18] MEDS: ALBUTEROL SULF 2.5 MG/0.5ML(0.5%) NEB SOLN NEB PRN ×7 (03:07→22:20)
[2018-03-18] MEDS: LORazepam 0.5 MG TAB PO PRN (03:12)
[2018-03-18 04:37] VITALS: BP 164/92
[2018-03-18] MEDS: LEVOFLOXACIN 500MG 100 ML IV SCH (05:23)
[2018-03-18] MEDS: HYDROcodone-ACET 5/325MG TAB PO PRN ×4 (05:34→23:01)
[2018-03-18 06:15] LABS: Basophils # (auto) 0 uL; Eosinophils # (auto) 0 uL; Hematocrit 43.3 % (36.0-46.0); Hemoglobin 14.4 g/dL (12.2-16.2); Lymphocytes # (auto) 0.5 uL; Lymphocytes % (auto) 7.9 % (10.0-50.0); Mean Corpuscular Hemoglobin 30.7 pg (28.0-32.0); Mean Corpuscular Hgb Conc. 33.2 g/dL (32.0-36.0); Mean Corpuscular Volume 92.4 fL (80.0-100.0); Monocytes # (auto) 0.3 uL; Monocytes % (auto) 4.1 % (0.0-12.0); Neutrophils # (auto) 5.6 uL; Platelet Count (auto) 186 10^3/uL (140-450); Red Blood Cells 4.69 10^6/uL (4.0-5.20); White Blood Cell 6.4 10^3/uL (4.4-10.8)
[2018-03-18 06:36] LABS: Albumin 3.4 g/dL (3.4-5.0); Calcium 8.9 mg/dL (8.5-10.1); Potassium 4.1 mmol/L (3.5-5.1)
[2018-03-18 06:39] LABS: BUN/Creatinine Ratio 17.9
[2018-03-18 06:41] LABS: Bilirubin, Total 0.3 mg/dL (0.2-1.0); Total Protein 7.4 g/dL (6.4-8.2)
[2018-03-18 08:54] VITALS: BP 109/63
[2018-03-18] MEDS: methylPREDNISolone SOD SUCC 125 MG/2 ML VL IV SCH ×2 (09:10→22:03)
[2018-03-18] MEDS: ENOXAPARIN SOD 40 MG/0.4 ML SYRINGE SC SCH (09:10)
[2018-03-18] MEDS: FAMOTIDINE 20 MG TAB PO SCH ×2 (09:10→22:06)
[2018-03-18] MEDS: FUROSEMIDE 40 MG TAB PO SCH (09:10)
[2018-03-18] MEDS: POTASSIUM CHL 20 Meq TABLET PO SCH (10:00)
[2018-03-18] MEDS: ENALAPRIL MALEATE 10 MG TAB PO SCH (10:00)
[2018-03-18] MEDS: DOCUSATE SOD 100 MG CAP PO SCH ×2 (12:00→22:03)
[2018-03-18 13:00] VITALS: BP 153/79
[2018-03-18 14:05] VITALS: BP 132/86
[2018-03-18 16:08] VITALS: BP 120/56
[2018-03-18 21:02] VITALS: BP 135/88
[2018-03-18] MEDS: ATORVASTATIN 20 MG TAB PO SCH (22:06)
[2018-03-18] MEDS: MONTELUKAST SODIUM 10 MG TAB PO SCH (22:07)
[2018-03-18] MEDS: TEMAZEPAM 15 MG CAP PO PRN (22:07)
[2018-03-19] MEDS: LORazepam 0.5 MG TAB PO PRN ×2 (02:00→10:13)
[2018-03-19 05:18] VITALS: BP 171/82
[2018-03-19] MEDS: LEVOFLOXACIN 500MG 100 ML IV SCH (05:46)
[2018-03-19] MEDS: HYDROcodone-ACET 5/325MG TAB PO PRN ×3 (05:47→21:54)
[2018-03-19 08:00] VITALS: BP 132/115
[2018-03-19] MEDS: IPRATROPIUM BROM 0.5 MG/2.5ML INH SOL NEB PRN ×2 (08:29→13:30)
[2018-03-19] MEDS: ALBUTEROL SULF 2.5 MG/0.5ML(0.5%) NEB SOLN NEB PRN ×2 (08:29→13:30)
[2018-03-19 09:00] VITALS: BP 132/115
[2018-03-19] MEDS: ENOXAPARIN SOD 40 MG/0.4 ML SYRINGE SC SCH (09:57)
[2018-03-19] MEDS: methylPREDNISolone SOD SUCC 125 MG/2 ML VL IV SCH ×2 (09:57→22:15)
[2018-03-19] MEDS: ENALAPRIL MALEATE 10 MG TAB PO SCH (09:58)
[2018-03-19] MEDS: FUROSEMIDE 40 MG TAB PO SCH (09:58)
[2018-03-19] MEDS: DOCUSATE SOD 100 MG CAP PO SCH ×2 (09:58→21:53)
[2018-03-19] MEDS: FAMOTIDINE 20 MG TAB PO SCH ×2 (09:59→21:53)
[2018-03-19] MEDS: POTASSIUM CHL 20 Meq TABLET PO SCH ×2 (09:59→21:53)
[2018-03-19] MEDS ORDERED: LACTULOSE 20Gm/30ML SOLN PO ONE (10:00)
[2018-03-19] MEDS: LEVOFLOXACIN 250 MG TAB PO SCH (10:13)
[2018-03-19] MEDS ORDERED: TEMAZEPAM 15 MG CAP PO PRN (10:30)
[2018-03-19 13:00] VITALS: BP 162/78
[2018-03-19 17:00] VITALS: BP 120/83
[2018-03-19] MEDS: IPRATROPIUM BROM 0.5 MG/2.5ML INH SOL NEB SCH ×2 (18:31→22:14)
[2018-03-19] MEDS: ALBUTEROL SULF 2.5 MG/0.5ML(0.5%) NEB SOLN NEB SCH ×2 (18:31→22:14)
[2018-03-19 21:41] VITALS: BP 108/66
[2018-03-19] MEDS: MONTELUKAST SODIUM 10 MG TAB PO SCH (21:53)
[2018-03-19] MEDS: ATORVASTATIN 20 MG TAB PO SCH (21:53)
[2018-03-20] MEDS: IPRATROPIUM BROM 0.5 MG/2.5ML INH SOL NEB SCH ×4 (02:08→14:36)
[2018-03-20] MEDS: ALBUTEROL SULF 2.5 MG/0.5ML(0.5%) NEB SOLN NEB SCH ×4 (02:08→14:35)
[2018-03-20 05:00] VITALS: BP 127/62
[2018-03-20] MEDS: LORazepam 0.5 MG TAB PO PRN (05:31)
[2018-03-20 08:00] VITALS: BP 142/93
[2018-03-20] MEDS: HYDROcodone-ACET 5/325MG TAB PO PRN ×2 (08:27→15:43)
[2018-03-20] MEDS: DOCUSATE SOD 100 MG CAP PO SCH (09:54)
[2018-03-20] MEDS: FUROSEMIDE 40 MG TAB PO SCH (09:54)
[2018-03-20] MEDS: ENALAPRIL MALEATE 10 MG TAB PO SCH (09:54)
[2018-03-20] MEDS: LEVOFLOXACIN 250 MG TAB PO SCH (09:54)
[2018-03-20] MEDS: FAMOTIDINE 20 MG TAB PO SCH (09:54)
[2018-03-20] MEDS: POTASSIUM CHL 20 Meq TABLET PO SCH (09:54)
[2018-03-20] MEDS: ENOXAPARIN SOD 40 MG/0.4 ML SYRINGE SC SCH (09:55)
[2018-03-20] MEDS: methylPREDNISolone SOD SUCC 125 MG/2 ML VL IV SCH (09:55)
[2018-03-20 12:00] VITALS: BP 140/68
[2018-03-20 13:20] VITALS: BP 140/68
[2018-03-20 13:25] VITALS: BP 140/68
[2018-03-20 16:30] VITALS: BP 118/83
== END 2018-03-20 17:00 | disposition home health service (06) | DRG 189 ==
LOC: EDBD 22:53 → ER 23:01 → TELE 03-17 03:06 → TELE-CENTR 03-17 04:05
PROVIDERS: ADMIT Nurse Practitioner; ATTEND Family Medicine
DX: J96.22 Acute and chronic respiratory failure with hypercapnia (principal); J44.1 Chronic obstructive pulmonary disease with (acute) exacerbation; E66.2 Morbid (severe) obesity with alveolar hypoventilation; Z68.42 Body mass index [BMI] 45.0-49.9, adult; J98.11 Atelectasis; J44.0 Chronic obstructive pulmonary disease with (acute) lower respiratory infection; E78.00 Pure hypercholesterolemia, unspecified; E78.5 Hyperlipidemia, unspecified; F41.9 Anxiety disorder, unspecified; G47.00 Insomnia, unspecified; F12.90 Cannabis use, unspecified, uncomplicated; I48.2 Chronic atrial fibrillation; I11.9 Hypertensive heart disease without heart failure; F32.9 Major depressive disorder, single episode, unspecified; J20.9 Acute bronchitis, unspecified; K44.9 Diaphragmatic hernia without obstruction or gangrene; K59.00 Constipation, unspecified; R79.1 Abnormal coagulation profile; Z82.49 Family history of ischemic heart disease and other diseases of the circulatory system; Z82.5 Family history of asthma and other chronic lower respiratory diseases; Z87.891 Personal history of nicotine dependence; Z90.710 Acquired absence of both cervix and uterus; Z99.81 Dependence on supplemental oxygen; Z80.9 Family history of malignant neoplasm, unspecified; Z88.6 Allergy status to analgesic agent; Z79.899 Other long term (current) drug therapy; Z79.82 Long term (current) use of aspirin; Z81.8 Family history of other mental and behavioral disorders; Z84.89 Family history of other specified conditions
CPT/HCPCS: 36415; 36600; 51702; 71045; 80053; 82805; 83735; 83880; 84443; 84484; 85025; 85379; 85610; 85730; 87081; 93005; 94640; 94644; 94761; 96374; G0378; J1956; J2405

== ENCOUNTER 2018-08-27 09:42 | Inpatient (IN) | payer OTHER, MEDICAID | END 2018-09-06 13:45 | disposition hospice, home (50) | LOC: ER 09:42 → TELE 14:54 → DOU IN ICU 23:50 | DX: A41.81 Sepsis due to Enterococcus (principal); J96.00 Acute respiratory failure, unspecified whether with hypoxia or hypercapnia; J96.22 Acute and chronic respiratory failure with hypercapnia; E44.0 Moderate protein-calorie malnutrition; I50.32 Chronic diastolic (congestive) heart failure; E66.2 Morbid (severe) obesity with alveolar hypoventilation; J98.11 Atelectasis; N39.0 Urinary tract infection, site not specified; I11.0 Hypertensive heart disease with heart failure; I48.2 Chronic atrial fibrillation; J44.9 Chronic obstructive pulmonary disease, unspecified; I10 Essential (primary) hypertension; M54.5 Low back pain; D63.8 Anemia in other chronic diseases classified elsewhere; G89.29 Other chronic pain; I70.0 Atherosclerosis of aorta; K44.9 Diaphragmatic hernia without obstruction or gangrene; Z79.01 Long term (current) use of anticoagulants; Z79.51 Long term (current) use of inhaled steroids; Z82.0 Family history of epilepsy and other diseases of the nervous system; R06.89 Other abnormalities of breathing ==

== ENCOUNTER 2018-09-10 03:02 | Emergency (ER) | payer OTHER, MEDICAID ==
[~2018-09-10] VITALS: Ht 165.1 cm; Wt 204.1 kg
[~2018-09-10 03:02] MED LIST changes: +APIX2.5T PO; -ASPI-231 PO; +PAR20T PO; +POTASSIUM; +PRE1T PO; +SIMV-8 PO
[2018-09-10 03:05] VITALS: BP_SYST 0
[2018-09-10] MEDS ORDERED: SODIUM BICARBONATE 8.4% INJ 50ML SYRINGE IV ONE (03:07)
[2018-09-10] MEDS ORDERED: EPINEPHrine HCL 1 MG/10 ML SYRG IV ONE (03:07)
[2018-09-10] MEDS ORDERED: CALCIUM CHLOR(10%) 100MG/ML 10ML SYRINGE IV ONE (03:07)
== END 2018-09-10 09:40 | disposition expired ==
LOC: EDBD 03:02 → ER 03:06
DX: I46.9 Cardiac arrest, cause unspecified (principal); I11.0 Hypertensive heart disease with heart failure; I50.9 Heart failure, unspecified; J44.9 Chronic obstructive pulmonary disease, unspecified; E78.5 Hyperlipidemia, unspecified; Z90.710 Acquired absence of both cervix and uterus; Z88.6 Allergy status to analgesic agent; Z79.899 Other long term (current) drug therapy
CPT/HCPCS: 92950; 99285; J0171